=== PATIENT | female | born 1965 | race American Indian/Alaskan Native ===

== ENCOUNTER 2021-06-10 17:50 | Emergency (ER) | payer OTHER ==
--- NOTE | 2021-06-10 18:03 | Emergency Department Report ---
Blank Doc - Documentation Documentation: 55-year-old female that presents with CP, SOB, and cough. History of [place]. 1- This is a initial triage assessment/medical screening only. Full assessment and work-up will be completed once the patient is in proper hospital gown, ED bed and in a private room setting. This initial assessment/diagnostic orders/clinical plan/ treatment(s) is/are subject to change based on pt's health status, clinical progression and re-assessment by fellow clinical providers in the ED. Further treatment and workup at subsequent clinical providers discretion. Patient/guardians urged not to elope from ED as their condition may be serious if not clinically assessed and managed. 2-cardiac work-up
--- NOTE | 2021-06-10 18:36 | XRay Report ---
CHEST 2 VIEWS INDICATION / CLINICAL INFORMATION: Chest Pain. COMPARISON: None available. FINDINGS: SUPPORT DEVICES: None. HEART / MEDIASTINUM: No significant abnormality. LUNGS / PLEURA: No significant pulmonary or pleural abnormality. No pneumothorax. ADDITIONAL FINDINGS: No significant additional findings. IMPRESSION: 1. No acute findings. Signer Name: Justo Nicholson DO Signed: 06/10/2021 6:31 PM Workstation Name: [id number]
[2021-06-10 22:02] LABS: Alanine Aminotransferase 27 units/L (7-56); Albumin 3.9 g/dL (3.9-5); Blood Urea Nitrogen 7 mg/dL (7-17); Calcium 8.8 mg/dL (8.4-10.2); Hemolysis Index 76
[2021-06-10 22:05] LABS: BUN/Creatinine Ratio 10
[2021-06-10 22:07] LABS: Partial Thromboplastin Time 33.7 Sec. (24.2-36.6)
--- NOTE | 2021-06-11 10:20 | Electrocardiograph Report ---
[facility] Test Date: 2021-06-10 Test Time: 18:09:33 Pat Name: ALEKSEY BECERRA Department: Room: Gender: F Investment Sales Assistant: LOLA : 1965 Requested By: GRISELDA MAHAN Order Number: [id number] Reading MD: Ruddy Ramos Measurements Intervals [place] Rate: 102 P: 65 [place]: 130 QRS: 22 QRSD: 82 T: 131 QT: 322 QTc: 420 Interpretive Statements Sinus tachycardia Nonspecific T abnormalities, lateral leads No previous ECG available for comparison Electronically Signed On 06-11-2021 10:20:11 EDT by Ruddy Ramos
== END 2021-06-10 19:45 | disposition left against medical advice (07) ==
LOC: ED 17:50
DX: J00 Acute nasopharyngitis [common cold] (principal); Z53.21 Procedure and treatment not carried out due to patient leaving prior to being seen by health care provider
CPT/HCPCS: 36415; 71046; 80053; 84484; 85610; 85730; 93005